=== PATIENT | male | born 1960 | race Caucasian/White ===

== ENCOUNTER → 2019-05-15 14:50 | Outpatient (CLI) | payer OTHER, SELFPAY ==
[2019-05-14 14:55] VITALS: BMI 31.8
[2019-05-15 15:02] LABS: Pathologist Comment May follow
[2019-05-15 16:05] LABS: Synovial Fld Mononuclear WBC % 12.3 %; Synovial Fld Polynuclear WBC # 10.067 10^3/uL; Synovial Fld Polynuclear WBC % 87.7 %
[2019-05-15 16:39] LABS: AUTO B FLUID DILUENT BKGD CT WBC <0.1 RBC <0.01 (W<.1,R<.01); Color / Synovial Fluid Yellow (Pale Yellow); Source- Body Fluid SYNOVIAL
[2019-05-15 16:40] LABS: RBC /Synovial Fluid 14 /mm3 (0)
[2019-05-15 16:54] LABS: Appearance /Synovial Fluid Cloudy (CLEAR); Source / Synovial Fluid LT KNEE
[2019-05-15 17:26] LABS: Body Fluid QC Type(s) BF2Q,BF3Q
[2019-05-15 17:28] LABS: Lymph 4 %; Monocyte /Synovial Fluid 9 %; Neutrophil 87 % (0-25)
[2019-05-16 14:14] LABS: Pathologist Review Reviewed
== END ==
PROVIDERS: PCP Student in an Organized Health Care Education/Training Program; Referring Provider Physician Assistant; Visit Provider Physician Assistant
DX: M25.462 Effusion, left knee (principal)
CPT/HCPCS: 87070; 87075; 87205; 89050; 89051; 89060